=== PATIENT | male | born 1985 | race Caucasian/White ===

== ENCOUNTER 2017-05-18 08:02 | Emergency (ER) | payer SELFPAY ==
[~2017-05-18] VITALS: Ht 180.3 cm; Wt 79.5 kg
[2017-05-18 08:04] VITALS: BP 125/91; TEMP 99.3
[2017-05-18] MEDS ORDERED: NORCO 325 MG-51 TAB PO (09:13)
[2017-05-18] MEDS ORDERED: DOXYCYCLINE 10100 MG PO (09:13)
[2017-05-18 09:30] VITALS: PULSE 99
== END 2017-05-18 09:33 | disposition home or self-care (01) ==
LOC: COL.ER 08:02
DX: L05.01 Pilonidal cyst with abscess (principal); F17.210 Nicotine dependence, cigarettes, uncomplicated